=== PATIENT | female | born 1980 | race Caucasian/White ===

== ENCOUNTER → 2016-09-29 | Outpatient (CLI) | payer OTHER ==
--- NOTE | 2016-09-29 14:07 | Diagnostic Imaging Report ---
INDICATION: Digital mammogram bilateral screening. This is the patient's baseline study. At this time, there are no current complaints. The current study was also evaluated with a Computer Aided Detection (CAD) system. FINDINGS: There are scattered fibroglandular densities in both breasts which could obscure a lesion. There is no primary or secondary sign of malignancy noted. IMPRESSION: There is no evidence for malignancy. ACR BI-RADS Category 1: Negative. Result letter will be mailed to the patient. Note: At least 10% of breast cancer is not imaged by mammography. Dictated by: Dictated on workstation # [id number]
== END ==
LOC: EDUNIT# 08-01 12:02 → RAD 10:02
PROVIDERS: ATTEND Obstetrics & Gynecology
DX: Z12.31 Encounter for screening mammogram for malignant neoplasm of breast (principal)
CPT/HCPCS: 77067

== ENCOUNTER 2016-10-18 05:28 | Outpatient (CLI) | payer OTHER ==
[~2016-10-18] VITALS: Ht 162.6 cm; Wt 65.3 kg
[2016-10-18] MEDS ORDERED: IBUP-1780 PO (12:27)
[2016-10-18] MEDS ORDERED: LORA10CA PO (12:27)
[2016-10-21] MEDS ORDERED: DOCU100C37 PO (04:59)
[2016-10-21] MEDS ORDERED: OXYC-465 PO (04:59)
[2016-10-21] MEDS ORDERED: IBUP-1780 PO (04:59)
== END 2016-10-18 12:34 ==
LOC: PREOP 05:28
PROVIDERS: ATTEND Obstetrics & Gynecology
DX: Z01.818 Encounter for other preprocedural examination (principal); N39.3 Stress incontinence (female) (male); N92.1 Excessive and frequent menstruation with irregular cycle; N93.8 Other specified abnormal uterine and vaginal bleeding

== ENCOUNTER 2016-10-20 10:44 | Day surgery (SDC) | payer OTHER ==
[~2016-10-20] VITALS: Ht 162.6 cm; Wt 65.3 kg
[~2016-10-20 10:44] MED LIST: IBUP-1780 PO; LORA10CA PO
[2016-10-20] MEDS ORDERED: BUP/EPI 0.25% 1:200,000 (MARCAINE) 10 ML VIAL IJ ONE (10:50)
[2016-10-20] MEDS ORDERED: SCOPOLAMINE 1.5 MG (TRANSDERM-SCOP) PATCH TOP ONE (11:15)
[2016-10-20] MEDS ORDERED: ONDANSETRON 4 MG/2 ML (SDV) Z0FRAN IV ONE (11:15)
[2016-10-20 11:20] LABS: BASOPHILS % (AUTO) 0 % (0-10); EOSINOPHILS # (AUTO) 0.3 10^3/uL (0.0-0.3); EOSINOPHILS % (AUTO) 4 % (0-10); LYMPHOCYTES # (AUTO) 2.4 X 10^3 (1.0-4.0); LYMPHOCYTES % (AUTO) 31 % (12-44); MEAN CORPUSCULAR HEMOGLOBIN 30 PG (25-34); MEAN CORPUSCULAR HGB CONC 35 G/DL (32-36); MEAN CORPUSCULAR VOLUME 87 FL (80-99); MEAN PLATELET VOLUME 10.2 FL (7.4-10.4); MONOCYTES # (AUTO) 0.6 X 10^3 (0.0-1.0); MONOCYTES % (AUTO) 8 % (0-12); NEUTROPHILS # (AUTO) 4.3 X 10^3 (1.8-7.8); NEUTROPHILS % (AUTO) 57 % (42-75); PLATELET COUNT 343 10^3/uL (130-400); RED BLOOD COUNT 4.36 10^6/uL (4.35-5.85); RED CELL DISTRIBUTION WIDTH 12.6 % (10.0-14.5); WHITE BLOOD COUNT 7.5 10^3/uL (4.3-11.0)
[2016-10-20] MEDS ORDERED: ceFAZolin 1,000 MG (ANCEF) VIAL ONE (11:23)
[2016-10-20] MEDS ORDERED: NS (IVPB) 50 ML ONE (11:24)
[2016-10-20] MEDS ORDERED: ONDANSETRON 4 MG/2 ML (SDV) Z0FRAN ONE (11:31)
[2016-10-20] MEDS ORDERED: ROCURONIUM 50 MG/5 ML (ZEMURON) VIAL IV ONE (11:31)
[2016-10-20] MEDS ORDERED: proPOfol 200 MG/20 ML (DIPRIVAN) VIAL IV ONE (11:31)
[2016-10-20] MEDS ORDERED: DEXAMETHASONE PF 10 MG/ML (DECADRON) VIAL ONE (11:31)
[2016-10-20] MEDS ORDERED: LIDOCAINE 2% 20 ML (XYLOCAINE) VIAL ONE (11:31)
[2016-10-20] MEDS ORDERED: MIDAZOLAM 2 MG/2 ML (VERSED) VIAL ONE (11:32)
[2016-10-20] MEDS ORDERED: fentaNYL INJECTION 100 MCG/2 ML AMP ONE ×2 (11:32→12:28)
[2016-10-20] MEDS ORDERED: ceFAZolin 1 GM/NS 50 ML IVPB IV ONE ×2 (11:45)
[2016-10-20] MEDS: LACTATED RINGERS 1,000 ML IV PRN ×3 (11:50→13:30)
[2016-10-20 12:10] VITALS: BP 103/73
[2016-10-20] MEDS ORDERED: SEVOFLURANE (ULTANE) 15 ML INHAL SOLN ONE ×5 (12:15→14:10)
[2016-10-20] MEDS ORDERED: LACTATED RINGERS 1,000 ML IV ONE ×3 (12:15→14:10)
--- NOTE | 2016-10-20 12:19 | Progress Note-Pre Operative ---
Pre-Operative Progress Note H&P Reviewed The H&P was reviewed, patient examined and no changes noted. Date Seen by Provider: Oct 20, 2016 Time Seen by Provider: 12:19 Date H&P Reviewed: Oct 20, 2016 Time H&P Reviewed: 12:19 Pre-Operative Diagnosis: this on 2 uterine bleeding/menorrhagia/ menometrorrhagia not controlled with ESTUARDO MORE MD Oct 20, 2016 12:19 pm
--- NOTE | 2016-10-20 12:21 | Progress Note-Post Operative ---
Post-Operative Progess Note Surgeon (s)/Strategic Planning Manager (s) Surgeon ESTUARDO MORE MD Strategic Planning Manager: Duyen Marina RN Pre-Operative Diagnosis DUB/menorrhagia/metrorrhagia Post-Operative Diagnosis same as preop with pathology pending Procedure & Operative Findings Date of Procedure 10/20/16 Procedure Performed/Findings TLH / BS Anesthesia Type Gen. endotracheal Estimated Blood Loss Estimated blood loss (mL): minimal Specimens/Packing Specimens Removed uterus and fallopian tubes Packing: none ESTUARDO MORE MD Oct 20, 2016 12:21
[2016-10-20] MEDS ORDERED: PROMETHAZINE INJ 25 MG/ML (PHENERGAN) AMP IM PRN (12:30)
[2016-10-20] MEDS ORDERED: WATER (STERILE) FOR INJ 10 ML BTL INJ ONE (12:30)
[2016-10-20] MEDS ORDERED: MEPERIDINE (DEMEROL) INJ 100 MG/ML IM PRN (12:30)
[2016-10-20] MEDS ORDERED: morphine INJ 10 MG/ML 1ML (SYR OR VIAL) ONE (13:44)
[2016-10-20] MEDS ORDERED: NEOSTIGMINE (BLOXIVERZ ) 1 MG/1ML 10 ML VIAL ONE (14:10)
[2016-10-20] MEDS ORDERED: GLYCOPYRROLATE 0.2 MG/ML (ROBINUL) 2 ML VIAL ONE (14:10)
[2016-10-20] MEDS ORDERED: ONDANSETRON 4 MG/2 ML (SDV) Z0FRAN IVP PRN (14:15)
[2016-10-20] MEDS: MEPERIDINE (DEMEROL) INJ 50 MG/ML IVP PRN ×2 (14:16→14:25)
[2016-10-20] MEDS: morphine INJ 10 MG/ML 1ML (SYR OR VIAL) IVP PRN ×2 (14:45→14:51)
[2016-10-20] MEDS: KETOROLAC 30 MG/ML VIAL IVP SCH ×3 (14:46→23:48)
[2016-10-20 15:20] VITALS: BP 81/48
[2016-10-20 15:45] VITALS: BP 89/51
[2016-10-20] MEDS: D5 LR IV SOLUTION 1,000 ML IV SCH ×2 (16:00→22:41)
[2016-10-20 17:00] VITALS: BP 89/47
[2016-10-20] MEDS: ONDANSETRON 4 MG/2 ML (SDV) Z0FRAN IVP PRN (18:22)
[2016-10-20 20:00] VITALS: BP 89/49
[2016-10-20] MEDS: oxyCODONE/APAP 10/325MG (PERCOCET 10) TABLET PO PRN (21:00)
[2016-10-21] VITALS: BP 95/53
[2016-10-21] MEDS: ONDANSETRON 4 MG/2 ML (SDV) Z0FRAN IVP PRN (00:57)
[2016-10-21] MEDS: oxyCODONE/APAP 10/325MG (PERCOCET 10) TABLET PO PRN ×2 (00:57→07:35)
[2016-10-21] MEDS: D5 LR IV SOLUTION 1,000 ML IV SCH (00:57)
[2016-10-21 04:00] VITALS: BP 94/58
--- NOTE | 2016-10-21 04:58 | Progress Note-Standard ---
Standard Progress Note Progress Notes/Assess & Plan Date Seen by Provider: Oct 21, 2016 Time Seen by Provider: 04:57 Progress/Assessment & Plan this patient is without complaint. She is ambulating, tolerating by mouth well , has good pain control. Patient has not voided yet Vital Signs Date Time Temp Pulse Resp B/P (MAP) Pulse Ox O2 Delivery O2 Flow Rate FiO2 10/21/16 00:00 96.8 57 16 95/53 97 Nasal Cannula 1.00 10/20/16 21:00 100 Nasal Cannula 2.00 10/20/16 20:00 98.6 65 16 89/49 97 Nasal Cannula 2.00 10/20/16 17:00 96.8 67 18 89/47 97 Nasal Cannula 3.00 10/20/16 15:45 81 89/51 98 Nasal Cannula 3.00 10/20/16 15:20 96.8 76 18 81/48 98 Nasal Cannula 10/20/16 12:10 98.1 77 18 103/73 96 Room Air I & O 10/21/16 07:00 Intake Total 2410 ml Output Total 280 ml Balance 2130 ml Vital signs are stable. Patient is afebrile. Abdomen is benign. Bowel sounds are present. Extremities show clubbing cyanosis. There is no Homans sign. Assessment and plan postoperative day number 1 status post total laparoscopic hysterectomy with bilateral salpingectomies. Patient is doing well plan is for discharge home with follow-up in clinic Final Diagnosis dysfunctional uterine bleeding/menorrhagia ESTUARDO MORE MD Oct 21, 2016 4:58 am
[2016-10-21] MEDS ORDERED: OXYC-465 PO (04:59)
[2016-10-21] MEDS ORDERED: IBUP-1780 PO (04:59)
[2016-10-21] MEDS ORDERED: DOCU100C37 PO (04:59)
--- NOTE | 2016-10-21 05:02 | Discharge Instructions ---
Discharge Instructions Discharge Medications New, Converted or Re-Newed RX: RX on Chart Patient Instructions Patient Instructions: as directed Return to The Hospital For: as directed Activity & Diet Discharge Diet: No Restrictions Activity as Tolerated: No Orders-Post D/C & Referrals Follow Up Appt: return to clinic on Sunday, October 23, 2016 as scheduled for incision check Call to make follow up appt. for patient in 4 weeks. Activity: Rest for 24 hours, than as tolerated. Wound Care: May remove Band-Aid tomorrow. Replace as desired. Keep incisions clean and dry. Wash daily with soap and water. Please call in RX to patient pharmacy. Diet: As tolerated-Clear Liquids only if nauseated. May shower or tub bathe as desired. No driving for 24 hours, no alcoholic beverages for 24 hours, and nothing per vagina (no tampons, douching, or intercourse) for 8 weeks. Patient to return to the clinic as soon as possible for: Temperature greater than 101F, Severe Pain, Foul discharge from incision or vagina, Excessive Bleeding (more than a period). ESTUARDO MORE MD Oct 21, 2016 5:02 am
[2016-10-21] MEDS ORDERED: IBUPROFEN 800 MG (MOTRIN) TAB PO ONE (05:56)
[2016-10-21 08:00] VITALS: BP 106/66
[2016-10-21] MEDS ORDERED: DOCUSATE SODIUM 100 MG (COLACE) CAP PO SCH (09:00)
[2016-10-21 09:15] VITALS: BP 106/66
[2016-10-21 12:00] VITALS: BP 96/56
[2016-10-21] MEDS ORDERED: IBUPROFEN 800 MG (MOTRIN) TAB PO SCH (12:30)
--- NOTE | 2016-10-21 16:09 | Anesthesia-General Post-Op ---
General Patient Condition Mental Status/LOC: Same as Preop Cardiovascular: Satisfactory Nausea/Vomiting: Absent Respiratory: Satisfactory Pain: Controlled Complications: Absent Post Op Complications Complications None Follow Up Care/Instructions Patient Instructions None needed. Anesthesia/Patient Condition Patient Condition Patient is doing well, no complaints, stable vital signs, no apparent adverse anesthesia problems. No complications reported per nursing. D/C home per [facility] Criteria: Yes WANDY PORTER CRNA Oct 21, 2016 16:08
--- NOTE | 2016-10-22 01:14 | OPERATIVE REPORT ---
PROCEDURE PHYSICIAN: ESTUARDO MORE DATE OF PROCEDURE: 10/20/2016 DATE OF DICTATION: 10/20/2016 PREOPERATIVE DIAGNOSES: 1. Dysfunctional uterine bleeding. 2. Menorrhagia. 3. Metrorrhagia POSTOPERATIVE DIAGNOSES: 1. Dysfunctional uterine bleeding. 2. Menorrhagia. 3. Metrorrhagia 4. Endometriosis. OPERATIVE PROCEDURE: Total laparoscopic hysterectomy with bilateral salpingectomies as well as some adhesiolysis. OPERATIVE DESCRIPTION: With the patient in the supine position, under satisfactory general anesthesia, she was repositioned in the dorsal lithotomy position in the [facility] and prepped and draped in the usual fashion for abdominal and vaginal surgery. The urinary bladder was drained via Hinkle catheter. A weighted speculum was placed in posterior fornix of the vagina. Cervix was exposed and grasped anteriorly with single-tooth tenaculum. The uterus was sounded to 9 cm of uterine sound. The cervix was then serially dilated with Fausto dilators to accommodate a NAJMA 2 manipulator, which was placed and the bulb filled with 4 mL of air. The cervix was affixed the manipulator with sutures of number 1 Vicryl placed at the 3 and 9 o'clock positions. On NAJMA 2, a number 16 mm x 8 cm uterine probe was used with a 3 cm colpotomy ring. The patient was brought into low dorsal lithotomy position. A 12 mm incision was made 3 cm superior to the umbilicus in the midline. Veress needle was placed through that incision into the abdominal cavity and correct placement was confirmed with the water drop test. The abdomen was insufflated with 2.4 liters of carbon dioxide. The Veress needle was removed and a 12 mm Optiview laparoscopic port placed. The abdominal wall was transilluminated and 8 mm ports were placed through the incisions of those sizes 9 cm lateral to the umbilicus on both sides. All 3 port sites were infiltrated with 0.25% Marcaine with epinephrine prior to incision. The patient was placed in Trendelenburg, allowing the bowel to spill up out of the pelvis. The operative equipment was position and using a vessel sealer on the right and a bipolar fenestrated grasper on the left, the pelvis was examined. There was extensive endometriosis around the right ovary which was adherent in the ovarian fossa. Both fallopian tubes were tortuous, fibrotic appearing with clubbed ends. Both ureters were readily visible and easily to distinguish that run coursing down through the pelvis. The fallopian tube on the left appeared the same as on the right. The left ovary had a couple of spots of endometriosis but there were far more on the right. The uterus was quite mottled in appearance consistent with extensive adenomyosis. The laparoscope was rotated. The appendix was identified. It was a normal vermiform appendix. The sigmoid was adherent to the pelvic brim on the left, partially obstructing access to the IP ligament. These adhesions were taken down with very careful dissection using the vessel sealer. Care was taken to avoid thermal or traumatic injury to bowel or adjacent vascular structures. With that done, the dissection was started on the right removing the fallopian tube by clamping, cauterizing and dividing the mesosalpinx with the vessel sealer. That was continued to the side of uterus and then the utero-ovarian pedicle was treated in the same manner as was the round ligament and the broad ligament. Dissection was then carried down the side of uterus to the cardinal ligaments in the same manner. The same procedure was performed on the left allowing for removal of both fallopian tubes with the uterus and salvage of both ovaries. The anterior lower uterine segment and peritoneum were now divided. The bladder carefully dissected down off the lower uterine segment, then colpotomy incision was made at the 12 o'clock position on the cervix, exposing the colpotomy ring. That incision was continued circumferentially until the entire colpotomy ring was exposed. Then the uterus, with the tubes still attached, was removed through the vagina. The vaginal cuff was closed with 2 sutures of V-LOC agnes suture starting first from the right angle and continuing to the midportion and then from the left angle to the midportion taking care to include the pedicles of the uterine arteries on each side and staying well clear of the ureters as were readily visible and seen to be peristalsing before, during and after all of the dissections and closure. With the closure complete, the last couple stitches were used to bring the bladder peritoneum back down onto the vaginal cuff. The pelvis was irrigated and examined for hemostasis. With that being complete, the endometriosis implants on the right ovary, in right ovarian fossae and on the left ovary and left ovarian fossae were touched with electrocautery to destroy them. With no further abnormal pathology and hemostasis assured, and sponge and needle counts correct, the procedure was terminated. The operative instruments were removed under direct vision as were the ports. The abdomen was evacuated of insufflating gas in the process of removing the port. The bowel was seen to fall back down into the pelvis normally. There was no bleeding from the port sites. The skin incisions were stapled. The fascia at the supraumbilical incision was closed with [id number] suture of 2-0 Vicryl. A speculum was replaced in the vagina and the vaginal cuff examined. It was completely intact and completely hemostatic. There was good support evident from support of the vaginal apex onto the uterosacral ligaments with the closure of the vaginal cuff. Sponge and needle counts were correct at the end of procedure. Estimated blood loss for the procedure was minimal. The patient tolerated the procedure well and was uneventfully awakened from her general anesthesia and transferred to recovery room in stable condition. Job ID: [id number] Dictated Date: 10/20/2016 13:59:34 Director Of Flight Operations Date: 10/22/2016 00:56:05 / bambi
--- OUTSIDE RECORDS SUMMARY | 2016-10-24 06:50 | XMS REPORT ---
Author LYUDMILA Aaron [facility] e[employer]Works Address Unknown Phone Unavailable Care Team Providers Care Forging Die Finisher Name Role Phone LYUDMILA CANELA CP Unavailable Allergies, Adverse Reactions, Alerts Substance Reaction Event Type Tramadol HCl itching Drug Allergy Problems Problem Type Condition Code Onset Dates Condition Status Assessment Anxiety F41.9 Active Assessment Right shoulder pain M25.511 Active Problem Anxiety F41.9 Active Assessment Difficulty sleeping G47.9 Active Medications Medication Code System Code Instructions Start Date End Date Status Dosage Zoloft [facility] [address]-26 50 MG Orally Once a day Dec 14, 2014 1 tablet Ibuprofen [facility] [address]-48 800 MG Orally 2 times a day as needed Jan 25, 2015 1 tablet Procedures Procedure Coding System Code Date Office Visit, Est Pt., Level 3 CPT-4 14370 Jan 25, 2015 Vital Signs Date/Time: Jan 25, 2015 Temperature 97.4 F Weight 129.5 lbs Height 64 in BMI 22.23 Index Blood Pressure Diastolic 62 mmHg Blood Pressure Systolic 98 mmHg Cardiac Monitoring Heart Rate 68 bpm Results No Known Results Summary Purpose eClinicalWorks Submission
--- OUTSIDE RECORDS SUMMARY | 2016-10-24 06:50 | XMS REPORT ---
Author LYUDMILA Aaron Organization e[employer] Address Unknown Phone Unavailable Care Team Providers Care Cyanide Case Hardener Name Role Phone LYUDMILA CANELA CP Unavailable Allergies No Known Allergies Problems Problem Type Condition Code Onset Dates Condition Status Assessment Encounter for immunization Z23 Active Problem Anxiety F41.9 Active Medications No Known Medications Procedures Procedure Coding System Code Date SINGLE IMMUNIZATION ADMIN CPT-4 66958 Feb 11, 2016 FLUARIX QUAD P-FREE 3 AND UP .50 2015 CPT-4 22932 Feb 11, 2016 Results No Known Results Immunizations Vaccine Administration Date FLUZONE QUAD 3 AND UP 0.50 2015Feb 11, 2016 Summary Purpose eClinicalWorks Submission
--- OUTSIDE RECORDS SUMMARY | 2016-10-24 06:50 | XMS REPORT ---
Author LYUDMILA Aaron [facility] eClinical[employer] Address Unknown Phone Unavailable Care Team Providers Care Plan Nurse Name Role Phone LYUDMILA CANELA CP Unavailable Allergies No Known Allergies Problems Problem Type Condition Code Onset Dates Condition Status Assessment Anxiety F41.9 Active Assessment Difficulty sleeping G47.9 Active Problem Anxiety F41.9 Active Medications No Known Medications Procedures Procedure Coding System Code Date COMPLETE CBC W/AUTO DIFF WBC CPT-4 95647 Jan 26, 2015 LIPID PANEL CPT-4 07579 Jan 26, 2015 ASSAY THYROID STIM HORMONE CPT-4 48706 Jan 26, 2015 VENIPUNCT, ROUTINE* CPT-4 93277 Jan 26, 2015 COMPREHEN METABOLIC PANEL CPT-4 62770 Jan 26, 2015 Results Name Result Date Reference Range Unit Abnormality Flag LIPID PANEL ROUTINE VENIPUNCTURE THYROID ANALYZER ----TSH 1.350 [id number] 0.450-4.500 uIU/mL CBC Summary Purpose eClinicalWorks Submission
--- OUTSIDE RECORDS SUMMARY | 2016-10-24 06:50 | XMS REPORT ---
Author LYUDMILA Aaron [facility] eClinical[employer] Address Unknown Phone Unavailable Care Team Providers Care Parallel Computing Software Engineer Name Role Phone LYUDMILA CANELA CP Unavailable Allergies No Known Allergies Problems Problem Type Condition Code Onset Dates Condition Status Assessment Encounter for immunization Z23 Active Assessment Visit for TB skin test Z11.1 Active Problem Anxiety F41.9 Active Assessment Encounter for screening for other viral diseases Z11.59 Active Medications No Known Medications Procedures Procedure Coding System Code Date TDAP (BOOSTRIX) CPT-4 91198 Dec 15, 2015 HEP B (ADULT) CPT-4 28311 Dec 15, 2015 TB INTRADERMAL TEST CPT-4 68666 Dec 15, 2015 VARICELLA-ZOSTER ANTIBODY CPT-4 97282 Dec 15, 2015 RUBEOLA ANTIBODY CPT-4 66001 Dec 15, 2015 VENIPUNCT, ROUTINE* CPT-4 39973 Dec 15, 2015 IMMUNIZATION ADMIN, EACH ADD (please include units) CPT-4 87762 Dec 15, 2015 SINGLE IMMUNIZATION ADMIN CPT-4 97199 Dec 15, 2015 MUMPS ANTIBODY CPT-4 77284 Dec 15, 2015 RUBELLA ANTIBODY CPT-4 83015 Dec 15, 2015 Results No Known Results Immunizations Vaccine Administration Date TDAP (BOOSTRIX) Dec 15, 2015 HEP B (ADULT) Dec 15, 2015 Summary Purpose eClinicalWorks Submission
--- OUTSIDE RECORDS SUMMARY | 2016-10-24 06:50 | XMS REPORT ---
Author Author REILLY RODRIGUEZ Organization [employer] Address Unknown Phone Unavailable Care Team Providers Care Finish Off Operator Name Role Phone REILLY RODRIGUEZ CP Unavailable Allergies, Adverse Reactions, Alerts Substance Reaction Event Type N.K.D.A. Info Not Available Non Drug Allergy Problems Problem Type Condition ICD-9 Code Onset Dates Condition Status Assessment Shortness of breath 786.05 Active Assessment Anxiety as acute reaction to exceptional stress 308.0 Active Problem Streptococcal sore throat 034.0 Active Assessment Hyperventilating 786.01 Active Medications Medication Code System Code Instructions Start Date End Date Status Dosage Zoloft [facility] [address]-43 50 MG Orally Once a day Dec 14, 2014 1 tablet Procedures Procedure Coding System Code Date Office Visit, Est Pt., Level 3 CPT-4 39106 Dec 14, 2014 MEASURE BLOOD OXYGEN LEVEL CPT-4 47067 Dec 14, 2014 Vital Signs Date/Time: Dec 14, 2014 Temperature 97.8 F Weight 135.7 lbs Height 64 in Oximetry 98 % Blood Pressure Diastolic 66 mmHg Blood Pressure Systolic 106 mmHg Cardiac Monitoring Heart Rate 82 bpm BMI 23.29 Index Results No Known Results Summary Purpose eClinicalWorks Submission
--- OUTSIDE RECORDS SUMMARY | 2016-10-24 06:50 | XMS REPORT ---
Author Author REILLY RODRIGUEZ Organization [employer] Address Unknown Phone Unavailable Care Team Providers Care Home Companion Name Role Phone REILLY RODRIGUEZ CP Unavailable Allergies, Adverse Reactions, Alerts Substance Reaction Event Type Tramadol HCl itching Drug Allergy Problems Problem Type Condition Code Onset Dates Condition Status Assessment Vagal hoarseness G52.2 Active Assessment Sore throat J02.9 Active Problem Anxiety F41.9 Active Medications Medication Code System Code Instructions Start Date End Date Status Dosage Ibuprofen [facility] [address]-72 800 MG Orally 2 times a day as needed Jan 25, 2015 1 tablet PredniSONE [facility] [address]-16 10 MG Orally 2 times a day Apr 07, 2015 Apr 12, 2015 1 tablet as directed Zoloft [facility] [address]-72 50 MG Orally Once a day Dec 14, 2014 1 tablet Zithromax Z-Graeme [facility] [address]-81 250 MG Orally Once a day Apr 07, 2015 Apr 12, 2015 2 tablets on the first day, then 1 tablet daily for 4 days Claritin [facility] [address]-93 10 MG Orally Once a day 1 tablet Procedures Procedure Coding System Code Date Office Visit, Est Pt., Level 3 CPT-4 66561 Apr 07, 2015 Vital Signs Date/Time: Apr 07, 2015 Temperature 97.5 F Weight 140.4 lbs Height 64 in BMI 24.10 Index Blood Pressure Diastolic 64 mmHg Blood Pressure Systolic 118 mmHg Cardiac Monitoring Heart Rate 72 bpm Results No Known Results Summary Purpose eClinicalWorks Submission
== END 2016-10-21 09:15 | disposition home or self-care (01) ==
LOC: SDC 10:44 → WS 15:00 → SDC 10-21 09:15 → ENPENDDIS 10-21 12:00
PROVIDERS: ATTEND Obstetrics & Gynecology
DX: N80.0 Endometriosis of uterus (principal); N80.1 Endometriosis of ovary; N92.0 Excessive and frequent menstruation with regular cycle; N92.1 Excessive and frequent menstruation with irregular cycle; N93.8 Other specified abnormal uterine and vaginal bleeding
CPT/HCPCS: 36415; 84703; 85025; 86850; 86900; 86901; 87081; 88307; 94664; 96361; 96375; 96376